=== PATIENT | female | born 1950 | race Caucasian/White ===

== ENCOUNTER 2018-09-08 09:30 | Emergency (ER) | payer BC, MEDICARE ==
[2018-09-08] MEDS ORDERED: SODIUM CHLORIDE 0.9% 500 ML 500 ML IV STA (09:36)
[2018-09-08 09:37] VITALS: RESP 18
--- NOTE | 2018-09-08 09:40 | ED ---
General Adult HPI - General Chief complaint: Neuro Symptoms/Deficit Stated complaint: Poss CVA Time Seen by Provider: 09/08/18 09:30 Source: patient, RN notes reviewed Mode of arrival: EMS Limitations: no limitations - History of Present Illness Initial comments: This is a 68-year-old female who presents to the emergency department complaining that she has facial droop on the right side since last night at 6:00. Patient states she noticed that when she went to smoke a cigarette she could hold significant amount. Patient didn't think much of it and went to bed when she woke up this morning her daughter told she needed with emergency department. 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 Patient denies any headache today patient denies any numbness or extremity weakness. Patient denies any visual disturbance. Patient states she is as c oordinated as she normally is. Patient states she's able to ambulate normally as well. Patient denies any recent fever chills or cough per patient denies any difficulty breathing or shortness of breath per patient denies any chest pain. Patient denies abdominal pain. - Related Data Home Medications Medication Instructions Recorded Confirmed Diazepam [Valium] 2 mg PO BID PRN 09/08/18 09/08/18 HYDROcodone/APAP 7.5-325MG [[place] 1 tab PO DAILY PRN 09/08/18 09/08/18 7.5-325] Venlafaxine HCl [Effexor XR] 75 mg PO HS 09/08/18 09/08/18 Previous Rx's Medication Instructions Recorded predniSONE 25 mg PO DAILY 10 Days #5 tab 09/08/18 predniSONE 30 mg PO BID 5 Days #10 tab 09/08/18 valACYclovir HCL [Valacyclovir] 1,000 mg PO TID 10 Days #30 tab 09/08/18 Allergies Allergy/AdvReac Type Severity Reaction Status Date / Time morphine AdvReac Nausea & Verified 09/08/18 11:12 Vomiting Review of Systems ROS Statement: Those systems with pertinent positive or pertinent negative responses have been documented in the HPI. ROS Other: All systems not noted in ROS Statement are negative. Past Medical History Past Medical History: No Reported History History of Any Multi-Drug Resistant Organisms: None Reported Past Surgical History: Section, Cholecystectomy, Hysterectomy Past Psychological History: Depression Smoking Status: Current every day smoker Past Alcohol Use History: None Reported Past Drug Use History: Marijuana General Exam - General Exam Comments Initial Comments: GENERAL: Patient is well-developed and well-nourished. Patient is nontoxic and well- hydrated and is in no acute distress. ENT: Neck is soft and supple. No significant lymphadenopathy is noted. Oropharynx is clear. Moist mucous membranes. Neck has full range of motion without eliciting any pain. EYES: The sclera were anicteric and conjunctiva were pink and moist. Extraocular movements were intact and pupils were equal round and reactive to light. E yelids were unremarkable. PULMONARY: Unlabored respirations. Good breath sounds bilaterally. No audible rales rhonchi or wheezing was noted. CARDIOVASCULAR: There is a regular rate and rhythm without any murmurs gallops or rubs. ABDOMEN: Soft and nontender with normal bowel sounds. SKIN: Skin is clear with no lesions or rashes and otherwise unremarkable. NEUROLOGIC: Patient is alert and oriented x3. Patient has complete right-sided facial droop including the forehead. Motor and sensory are also intact. Normal speech, volume and content. Symmetrical smile. Cerebellar exam grossly intact. MUSCULOSKELETAL: Normal extremities with adequate strength and full range of motion. LYMPHATICS: No significant lymphadenopathy is noted PSYCHIATRIC: Normal psychiatric evaluation. Limitations: no limitations Course Vital Signs 09/08/18 09:34 Temperature 98.6 F Pulse Rate 89 Respiratory 18 Rate Blood Pressure 136/92 O2 Sat by Pulse 97 Oximetry Medical Decision Making - Medical Decision Making EKG shows normal sinus rhythm at 66 bpm MD interval is 130 QRS is 94 QT interval 38 QTC is 406. Patient's EKG shows no ST segment elevation or depression or T wave abnormalities are noted. Chest x-ray shows no acute normalities. CTA shows no acute abnormality. 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 I will treat her as such. - Lab Data Result diagrams: 09/08/18 09:40 09/08/18 09:40 Lab Results 09/08/18 09/08/18 09/08/18 Range/Units 09:40 09:40 09:40 WBC 6.0 (3.8-10.6) k/uL RBC 4.56 (3.80-5.40) m/uL Hgb 14.1 (11.4-16.0) gm/dL Hct 42.2 (34.0-46.0) % MCV 92.6 (80.0-100.0) fL MCH 30.9 (25.0-35.0) pg MCHC 33.3 (31.0-37.0) g/dL RDW 13.7 (11.5-15.5) % Plt Count 220 (150-450) k/uL Neutrophils % 60 % Lymphocytes % 29 % Monocytes % 5 % Eosinophils % 4 % Basophils % 1 % Neutrophils # 3.6 (1.3-7.7) k/uL Lymphocytes # 1.7 (1.0-4.8) k/uL Monocytes # 0.3 (0-1.0) k/uL Eosinophils # 0.2 (0-0.7) k/uL Basophils # 0.0 (0-0.2) k/uL PT 10.3 (9.0-12.0) sec INR 1.0 (<1.2) APTT 23.4 (22.0-30.0) sec Sodium 142 (137-145) mmol/L Potassium 4.3 (3.5-5.1) mmol/L Chloride 110 H (98-107) mmol/L Carbon Dioxide 22 (22-30) mmol/L Anion Gap 10 mmol/L BUN 16 (7-17) mg/dL Creatinine 0.67 (0.52-1.04) mg/dL Est GFR (CKD-EPI)AfAm >90 (>60 ml/min/1.73 sqM) Est GFR (CKD-EPI)NonAf >90 (>60 ml/min/1.73 sqM) Glucose 107 H (74-99) mg/dL Calcium 9.5 (8.4-10.2) mg/dL Total Bilirubin 0.4 (0.2-1.3) mg/dL AST 22 (14-36) U/L ALT 26 (9-52) U/L Alkaline Phosphatase 67 (38-126) U/L Troponin I (0.000-0.034) ng/mL Total Protein 6.8 (6.3-8.2) g/dL Albumin 4.1 (3.5-5.0) g/dL 09/08/18 Range/Units 09:40 WBC (3.8-10.6) k/uL RBC (3.80-5.40) m/uL Hgb (11.4-16.0) gm/dL Hct (34.0-46.0) % MCV (80.0-100.0) fL MCH (25.0-35.0) pg MCHC (31.0-37.0) g/dL RDW (11.5-15.5) % Plt Count (150-450) k/uL Neutrophils % % Lymphocytes % % Monocytes % % Eosinophils % % Basophils % % Neutrophils # (1.3-7.7) k/uL Lymphocytes # (1.0-4.8) k/uL Monocytes # (0-1.0) k/uL Eosinophils # (0-0.7) k/uL Basophils # (0-0.2) k/uL PT (9.0-12.0) sec INR (<1.2) APTT (22.0-30.0) sec Sodium (137-145) mmol/L Potassium (3.5-5.1) mmol/L Chloride (98-107) mmol/L Carbon Dioxide (22-30) mmol/L Anion Gap mmol/L BUN (7-17) mg/dL Creatinine (0.52-1.04) mg/dL Est GFR (CKD-EPI)AfAm (>60 ml/min/1.73 sqM) Est GFR (CKD-EPI)NonAf (>60 ml/min/1.73 sqM) Glucose (74-99) mg/dL Calcium (8.4-10.2) mg/dL Total Bilirubin (0.2-1.3) mg/dL AST (14-36) U/L ALT (9-52) U/L Alkaline Phosphatase (38-126) U/L Troponin I <0.012 (0.000-0.034) ng/mL Total Protein (6.3-8.2) g/dL Albumin (3.5-5.0) g/dL Disposition Clinical Impression: Disla's palsy Disposition: HOME SELF-CARE Condition: Good Prescriptions: predniSONE 30 mg PO BID 5 Days #10 tab predniSONE 25 mg PO DAILY 10 Days #5 tab valACYclovir HCL [Valacyclovir] 1,000 mg PO TID 10 Days #30 tab Is patient prescribed a controlled substance at d/c from ED?: No Referrals: Nonstaff,Physician [Primary Care Provider] - 1-2 days Time of Disposition: 11:52
[2018-09-08 09:51] LABS: Basophils % (A) 1 %; Eosinophils # (A) 0.2 k/uL (0-0.7); Eosinophils % (A) 4 %; HCT 42.2 % (34.0-46.0); HGB 14.1 gm/dL (11.4-16.0); Lymphocytes # (A) 1.7 k/uL (1.0-4.8); Lymphocytes % (A) 29 %; MCH 30.9 pg (25.0-35.0); MCHC 33.3 g/dL (31.0-37.0); MCV 92.6 fL (80.0-100.0); Mean Platelet Volume 7.2; Monocytes # (A) 0.3 k/uL (0-1.0); Monocytes % (A) 5 %; Neutrophils # (A) 3.6 k/uL (1.3-7.7); Neutrophils % (A) 60 %; Platelet Count 220 k/uL (150-450); RBC 4.56 m/uL (3.80-5.40); RDW 13.7 % (11.5-15.5)
[2018-09-08 09:59] LABS: Partial Thromboplastin Time 23.4 sec (22.0-30.0); Prothrombin Time 10.3 sec (9.0-12.0)
[2018-09-08 10:02] LABS: ALT 26 U/L (9-52); AST 22 U/L (14-36); African American GFR (CKD) >90 (>60 ml/min/1.73 sqM); Albumin 4.1 g/dL (3.5-5.0); Alkaline Phosphatase 67 U/L (38-126); Anion Gap 10 mmol/L; Blood Urea Nitrogen 16 mg/dL (7-17); Calcium 9.5 mg/dL (8.4-10.2); Carbon Dioxide 22 mmol/L (22-30); Chloride 110 mmol/L (98-107); Glucose 107 mg/dL (74-99); Potassium 4.3 mmol/L (3.5-5.1); Sodium 142 mmol/L (137-145); Total Bilirubin 0.4 mg/dL (0.2-1.3); Total Protein 6.8 g/dL (6.3-8.2)
--- NOTE | 2018-09-08 10:19 | XR ---
EXAMINATION TYPE: XR chest 2V DATE OF EXAM: 09/08/2018 COMPARISON: NONE HISTORY: Altered mental status TECHNIQUE: Frontal and lateral views of the chest are obtained. FINDINGS: There is no focal air space opacity, pleural effusion, or pneumothorax seen. The cardiac silhouette size is within normal limits. Minimal degenerative changes of the acromio clavicular join ts and thoracic spine. The osseous structures are intact. Cholecystectomy clips are seen. IMPRESSION: No acute cardiopulmonary process.
--- NOTE | 2018-09-08 10:26 | CT ---
EXAMINATION TYPE: CT brain wo con DATE OF EXAM: 09/08/2018 COMPARISON: None HISTORY: Possible CVA; Neurodeficits. Right sided facial droop since [address] DLP: 1091.4 mGycm Automated exposure control for dose reduction was used. FINDINGS: Mild generalized degenerative change. Faint low-attenuation in the white matter. Nonspecific most typ ical remote microvascular ischemia. There is intracranial atherosclerotic changes. On image 19 axial sequence there appears to be increas ed density in the distribution the left MCA. Acute thrombosis not excluded. Case discussed with ER ph ysician. IMPRESSION: 1. M1 segment left MCA is slightly hyperdense relative to the right. This raises concern for thrombos is of the left MCA. Case discussed with ER physician. 2. Degenerative and nonspecific white matter changes most typical remote microvascular ischemia. 3. No acute hemorrhage.
--- NOTE | 2018-09-08 11:33 | CT ---
EXAMINATION TYPE: CT angio head neck DATE OF EXAM: 09/08/2018 COMPARISON: CT brain same day HISTORY: 68-year-old female Neuro deficits since 1800 last night TECHNIQUE: Contiguous axial scanning of the head and neck performed with IV Contrast, patient injecte d with 50 ml mL of Isovue 370. Sagittal MIP reconstructions performed. CT DLP: 477.8 mGycm Automated exposure control for dose reduction was used. FINDINGS: Neck: Some prominent borderline enlarged mediastinal lymph nodes measuring up to 7 mm right paratracheal, 1 cm left tracheobronchial angle, and 7 mm AP window. Ectatic upper descending thoracic aorta at 3.0 c m. Conventional arch vessel branching anatomy. Bilateral vertebral artery origins are patent. The vessels are patent throughout the course of the le ft vertebral artery being slightly more dominant. Right common and internal carotid arteries are widely patent. Left common and internal carotid arteries are widely patent. Head: The vertebral and basilar arteries are patent. There is unusual course of the supraclinoid left internal carotid artery with a straight superior cou rse. As a result, the left carotid terminus is positioned more superiorly and anteriorly. There is mi ld fusiform dilatation of the supraclinoid segment of 5 mm versus 3 mm on the contralateral side. No significant stenosis or aneurysmal change is seen. No large vessel arterial occlusion. IMPRESSION: HEAD: 1. Unusual course of the supraclinoid left internal carotid artery with a straight superior course. A s a result, the left carotid terminus is located more anteriorly and superiorly. This likely accounts for the M1 segment left MCA asymmetry seen on the noncontrast head CT. No large vessel intracranial arterial occlusion or significant stenosis 2. The supraclinoid left ICA shows mild fusiform dilatation of 5 mm versus 3 mm on the contralateral side. NECK: 1. The carotid and vertebral arteries of the neck are widely patent. 2. Borderline enlarged mediastinal lymph nodes may be reactive/post inflammatory. Follow-up CT chest as clinically indicated.
[2018-09-08 12:17] VITALS: BP 138/81; PULSE 66; TEMP 98.4
== END 2018-09-08 12:17 | disposition home or self-care (01) ==
LOC: EC 09:30
DX: G51.0 Bell's palsy (principal); F32.9 Major depressive disorder, single episode, unspecified; F17.210 Nicotine dependence, cigarettes, uncomplicated; Z90.49 Acquired absence of other specified parts of digestive tract; Z90.710 Acquired absence of both cervix and uterus; Z79.899 Other long term (current) drug therapy; Z88.5 Allergy status to narcotic agent
CPT/HCPCS: 36415; 93005; 80053; 84484; 85025; 85610; 85730; 71046; 70496; 70450; 70498; 99285; Q9967